=== PATIENT | male | born 1955 | race African-American/Black ===

== ENCOUNTER 2017-05-25 10:25 | Emergency (ER) | payer OTHER ==
[~2017-05-25] VITALS: Ht 172.7 cm; Wt 90.7 kg
[~2017-05-25 10:25] MED LIST: BENAZEPRIL HCL10 MG ORAL; CIPROFLOXACIN500 M2 ORAL; NORCO 5-325 TA1 EACH ORAL; ZOFRAN ODT4 MG ORAL
[2017-05-25 10:41] VITALS: BP 108/70
[2017-05-25] MEDS ORDERED: Ketorolac 60mg Inj IM ONE (10:45)
[2017-05-25 11:08] LABS: EOSINOPHILS % (AUTO) 2.5 % (0.0-3.0); MEAN CORPUSCULAR HEMOGLOBIN 32.6 PG (27.0-31.0); MEAN CORPUSCULAR HGB CONC 32.6 G/DL (32.0-36.0); MEAN CORPUSCULAR VOLUME 100 FL (80-99); MEAN PLATELET VOLUME 6.8 FL (6.5-10.1); MONOCYTES % (AUTO) 8.3 % (1.0-10.0); NEUTROPHILS % (AUTO) 75.3 % (45.0-75.0); PLATELET COUNT 203 K/UL (150-450); RED BLOOD COUNT 4.51 M/UL (4.70-6.10); RED CELL DISTRIBUTION WIDTH 11.1 % (11.6-14.8); WHITE BLOOD COUNT 7.4 K/UL (4.8-10.8)
[2017-05-25 11:17] LABS: INR 0.9 (0.9-1.1); PROTHROMBIN TIME 9.7 SEC (9.30-11.50)
[2017-05-25 11:19] LABS: APPEARANCE,URINE CLEAR; KETONES,URINE NEGATIVE (NEGATIVE); LEUKOCYTE ESTERASE ,URINE NEGATIVE (NEGATIVE); NITRITE,URINE NEGATIVE (NEGATIVE); PH,URINE 6 (4.5-8.0); PROTEIN,URINE 2+ (NEGATIVE); UROBILINOGEN,URINE NORMAL MG/DL (0.0-1.0)
[2017-05-25 11:21] LABS: ALBUMIN/GLOBULIN RATIO 1.1 (1.0-2.7); CALCIUM 8.9 mg/dL (8.6-10.2); CREATININE 3.6 mg/dL (0.7-1.2); GLOMERULAR FILTRATION RATE 20.8 mL/min (>60); POTASSIUM 3.3 mEQ/L (3.4-4.9); TOTAL PROTEIN 6.8 g/dL (6.6-8.7)
[2017-05-25 11:34] LABS: BACTERIA,URINE FEW /HPF; SQUAMOUS EPITHELIAL CELL,UR FEW /LPF (NONE/OCC)
--- NOTE | 2017-05-25 11:35 | Diagnostic Imaging Report ---
Indications: Back pain. Technique: 3 views of the lumbar spine Findings: Comparison: None Vertebral alignment is intact. No fracture, lytic destruction, or other acute changes are demonstrated. Prominent disc marginal osteophytes are present at each level, with very degrees of disc space narrowing. Lower facet joints appear mildly sclerotic and hypertrophied. IMPRESSION: No evidence of acute lumbar abnormalities Degenerative spondylosis
--- NOTE | 2017-05-25 11:57 | Emergency Room Report ---
History of Present Illness General Chief Complaint: Lower Back Pain or Injury Source: Patient, Medical Record Present Illness HPI Patient states that 3 days ago he slipped and fell onto his right side. He states that he has had severe pain in the right lower rib cage. He states pain is much worse with movement. He also notes bruising on his right upper abdomen. He denies head injury or trauma. He denies headache. He denies blurry vision. He denies neck pain. He has no other complaints Allergies: Coded Allergies: No Known Allergies (Unverified , 05/17/16) Patient History Past Medical History: see triage record, HTN Social History: Denies: alcohol use, drug use, smoking Reviewed Nursing Documentation: PMH: Agreed, PSxH: Agreed Nursing Documentation-PMH Past Medical History: No History, Except For Hx Hypertension: Yes Review of Systems All Other Systems: negative except mentioned in HPI Physical Exam Vital Signs Date Time Temp Pulse Resp B/P Pulse Ox O2 Delivery O2 Flow Rate FiO2 05/25/17 10:33 98.1 84 14 108/70 96 Room Air Sp02 EP Interpretation: reviewed, normal General Appearance: no apparent distress, alert, GCS 15, non-toxic Head: normocephalic, atraumatic Eyes: bilateral eye PERRL, bilateral eye normal inspection ENT: hearing grossly normal, normal pharynx, no angioedema, normal voice Neck: full range of motion, supple/symm/no masses Respiratory: chest non-tender, lungs clear, normal breath sounds, no respiratory distress, no retraction, no accessory muscle use, speaking full sentences, other - Tender to palpation on the right inferior rib cage. Ecchymoses of the lower rib cage and right upper quadrant with different colors consistent with healing hematoma. Cardiovascular #1: regular rate, rhythm, no edema Gastrointestinal: normal bowel sounds, soft, non-distended, no guarding, no rebound, tenderness - Tender to palpation in the right flank and right upper quadrant. Rectal: deferred Genitourinary: normal inspection, no CVA tenderness Musculoskeletal: back normal, gait/station normal, normal range of motion, non- tender Neurologic: alert, oriented x3, responsive, motor strength/tone normal, sensory intact, speech normal Psychiatric: judgement/insight normal, memory normal, mood/affect normal, no suicidal/homicidal ideation Skin: normal color, no rash, warm/dry, well hydrated, other - See Resp and GI exam Medical Decision Making Diagnostic Impression: Primary Impression: Ribs, multiple fractures Additional Impression: Renal failure ER Course This patient was found to have multiple rib fractures. There is no evidence of hemothorax or pneumothorax. There is no evidence of intra-abdominal injury or organ injury on CT of the chest and abdomen. I was unable to use IV contrast in this patient because his son have a creatinine of 3.6. The patient has no known history of kidney disease. Unfortunately, I do not have a comparison creatinine. I was un-able to get hold of the patient's primary care physician. This patient will be admitted for pain control his rib fractures and further monitoring of his renal failure. Labs Test 05/25/17 10:55 05/25/17 11:04 White Blood Count 7.4 K/UL (4.8-10.8) Red Blood Count 4.51 M/UL (4.70-6.10) Hemoglobin 14.7 G/DL (14.2-18.0) Hematocrit 45.1 % (42.0-52.0) Mean Corpuscular Volume 100 FL (80-99) Mean Corpuscular Hemoglobin 32.6 PG (27.0-31.0) Mean Corpuscular Hemoglobin Concent 32.6 G/DL (32.0-36.0) Red Cell Distribution Width 11.1 % (11.6-14.8) Platelet Count 203 K/UL (150-450) Mean Platelet Volume 6.8 FL (6.5-10.1) Neutrophils (%) (Auto) 75.3 % (45.0-75.0) Lymphocytes (%) (Auto) 13.0 % (20.0-45.0) Monocytes (%) (Auto) 8.3 % (1.0-10.0) Eosinophils (%) (Auto) 2.5 % (0.0-3.0) Basophils (%) (Auto) 1.0 % (0.0-2.0) Prothrombin Time 9.7 SEC (9.30-11.50) Prothromb Time International Ratio 0.9 (0.9-1.1) Activated Partial Thromboplast Time 28 SEC (23-33) Sodium Level 131 mEQ/L (135-145) Potassium Level 3.3 mEQ/L (3.4-4.9) Chloride Level 94 mEQ/L (98-107) Carbon Dioxide Level 22 mEQ/L (20-30) Anion Gap 15 (5-15) Blood Urea Nitrogen 23 mg/dL (7-23) Creatinine 3.6 mg/dL (0.7-1.2) Estimat Glomerular Filtration Rate 20.8 mL/min (>60) Glucose Level 136 mg/dL (74-106) Calcium Level 8.9 mg/dL (8.6-10.2) Total Bilirubin 0.6 mg/dL (0.0-1.2) Aspartate Amino Transf (AST/SGOT) 38 U/L (5-40) Alanine Aminotransferase (ALT/SGPT) 34 U/L (3-41) Alkaline Phosphatase 76 U/L (40-129) Total Protein 6.8 g/dL (6.6-8.7) Albumin 3.7 g/dL (3.5-5.2) Globulin 3.1 g/dL Albumin/Globulin Ratio 1.1 (1.0-2.7) Lipase 31 U/L (< 60) Urine Color Pale yellow Urine Appearance Clear Urine pH 6 (4.5-8.0) Urine Specific [place] 1.015 (1.005-1.035) Urine Protein 2+ (NEGATIVE) Urine Glucose (UA) Negative (NEGATIVE) Urine Ketones Negative (NEGATIVE) Urine Occult Blood 1+ (NEGATIVE) Urine Nitrite Negative (NEGATIVE) Urine Bilirubin Negative (NEGATIVE) Urine Urobilinogen Normal MG/DL (0.0-1.0) Urine Leukocyte Esterase Negative (NEGATIVE) Urine RBC 2-4 /HPF (0 - 0) Urine WBC 2-4 /HPF (0 - 0) Urine Squamous Epithelial Cells Few /LPF (NONE/OCC) Urine Bacteria Few /HPF (NONE) Other X-Ray Diagnostic Results Other X-Ray Diagnostic Results : X-Ray ordered: L-spine # of Views/Limited Vs Complete: 3 View Indication: Pain EP Interpretation: No Interpretation: no dislocation, no soft tissue swelling, no fractures, other Impression: No acute disease Interpreting ER Provider: Arielle Last Vital Signs Date Time Temp Pulse Resp B/P Pulse Ox O2 Delivery O2 Flow Rate FiO2 05/25/17 11:07 98.1 05/25/17 10:41 14 108/70 96 Room Air 05/25/17 10:33 84 Disposition: ADMITTED INPATIENT Condition: Stable BRADLEY HUNTLEY D.O. May 25, 2017 11:57
[2017-05-25 12:42] VITALS: BP 122/76
--- NOTE | 2017-05-25 13:30 | Diagnostic Imaging Report ---
\H\CT THORAX\N\ Indications: Pain since fall and chest trauma 5 days ago Technique: Continuous helical CT imaging of the thorax and upper abdomen was performed with automatic exposure control on a Siemens sensation [address] scanner. Axial, coronal, sagittal images reconstructed at 3 mm slice thickness. No IV contrast was administered secondary to elevated creatinine level. CTDI volume(s): 16 mGy Total DLP: 19 mGy-cm (Includes CT abdomen pelvis) Findings: Comparison: Contrast-enhanced CT abdomen pelvis, 05/17/2016 Lack of IV contrast limits evaluation. Lungs normally, symmetrically inflated and clear. No pleural abnormality. Heart mildly enlarged. No pericardial abnormality. Scattered mild arterial mural calcifications. Vascular patency indeterminate. Thoracic aorta nonaneurysmal. No abnormally enlarged mediastinal or hilar lymph nodes. Asymmetric enlargement of left thyroid lobe extends into upper mediastinum. Acute nondisplaced fractures posterior lateral aspects right atrium 10th ribs. Overlying soft tissues mildly swollen. Nondisplaced fracture lateral aspect right fourth rib, acuity indeterminate. Old, healed fractures of the left third through 12th ribs. Mild compression fracture superior endplate T7 vertebral body with subjacent gas filled cleft and marrow space sclerosis. No significant retropulsion. No posterior element involvement. No significant surrounding soft tissue swelling. Multilevel disc space narrowing with marginal osteophyte formation. IMPRESSION: Multiple right rib fractures, acute in appearance T7 vertebral body compression fracture, acuity indeterminate No other evidence of acute injury Cardiomegaly Old, healed left rib fractures Degenerative spondylosis Asymmetric enlargement of left thyroid lobe. Associated mass not excludable. \H\CT ABDOMEN PELVIS\N\ Indications: Pain since fall and abdominal trauma 5 days ago Technique: Continuous helical CT imaging of the abdomen and pelvis was performed with automatic exposure control on a Siemens sensation [address] scanner. Axial, coronal, sagittal images reconstructed at 3 mm slice thickness. No IV contrast administered due to elevated creatinine level. CTDI volume(s): As above mGy Total DLP: As above mGy-cm Findings: Comparison: Contrast-enhanced CT abdomen pelvis 05/17/2016 Lack of IV contrast limits evaluation of solid visceral parenchyma and vascular structures. Unenhanced liver, pancreas, spleen, adrenal glands, kidneys demonstrate no obvious intrinsic or surrounding abnormality. No extraluminal gas or fluid collections are demonstrated. Gastrointestinal tract nondilated throughout. No obvious mural thickening, adjacent stranding, or other obvious acute abnormality. Bilateral renal collecting systems and ureters remain nondilated. Prominent diverticulum again noted emanating from left posterior lateral aspect of urinary bladder. Scattered arterial mural calcifications. Vascular patency indeterminate. Remainder visualized pelvic anatomy demonstrates no other obvious acute abnormality. Bilateral fat-containing inguinal hernias again noted. Multilevel disc space narrowing with marginal osteophyte formation again noted throughout lumbar spine. No acute fracture demonstrated. IMPRESSION: No evidence of acute injury, with limitation as described. Subtle abnormality of unenhanced solid visceral parenchyma may be missed. No other evidence of acute abdominopelvic disease Stable chronic changes as described
[2017-05-25 13:58] VITALS: BP 127/90
[2017-05-25] MEDS ORDERED: Norco 5mg/325mg tab ORAL ONE (14:00)
[2017-05-25 15:59] VITALS: BP 143/89
[2017-05-25 16:17] VITALS: BP 143/89
== END 2017-05-25 16:23 | disposition short-term general hospital (02) ==
LOC: EMR 10:51
DX: S22.41XA Multiple fractures of ribs, right side, initial encounter for closed fracture (principal); W01.0XXA Fall on same level from slipping, tripping and stumbling without subsequent striking against object, initial encounter; Y92.89 Other specified places as the place of occurrence of the external cause; N19 Unspecified kidney failure; I10 Essential (primary) hypertension; M47.816 Spondylosis without myelopathy or radiculopathy, lumbar region
CPT/HCPCS: 36415; 71250; 72020; 74176; 80053; 81003; 83690; 85025; 85610; 85730; 96372; 99285

== ENCOUNTER 2019-12-18 11:18 | Emergency (ER) | payer OTHER ==
[~2019-12-18] VITALS: Ht 172.7 cm; Wt 95.3 kg
[~2019-12-18 11:18] MED LIST changes: +COLACE100 MG ORAL; +MIRALAX17 G2 ORAL; +MIRTAZAPINE15 M3 ORAL; +TRAZODONE HCL100 MG ORAL; +VITAMIN D400 INTLU ORAL
--- NOTE | 2019-12-18 11:28 | NUR ---
ED Nurse Note: Pt walked in from home c/o bilateral lower back and flank pain 10/10 x3 days. Pt denies injury/N/V/diarrhea. Respirations even and unlabored on room air. Vitals stable as documented.
[2019-12-18 11:29] VITALS: BP 138/87
--- NOTE | 2019-12-18 11:57 | Emergency Room Report ---
History of Present Illness General Chief Complaint: Pain Source: Patient Present Illness HPI Patient is a 64-year-old male presents after increased back pain for the past 2 to 3 days. Pain is worse with movement. Denies any recent trauma. Denies any hematuria. Reports having increased bilateral lower abdominal pain. Allergies: Coded Allergies: No Known Allergies (Unverified , 05/17/16) Patient History Past Medical History: see triage record Reviewed Nursing Documentation: PMH: Agreed; PSxH: Agreed Nursing Documentation-PMH Past Medical History: No History, Except For Hx Hypertension: Yes Review of Systems All Other Systems: negative except mentioned in HPI Physical Exam Vital Signs Date Time Temp Pulse Resp B/P (MAP) Pulse Ox O2 Delivery O2 Flow Rate FiO2 12/18/19 11:22 97.9 89 14 137/91 (106) 95 Room Air Sp02 EP Interpretation: reviewed, normal General Appearance: normal inspection, well appearing, no apparent distress, alert, GCS 15, non-toxic Head: atraumatic ENT: normal ENT inspection, hearing grossly normal, normal voice Neck: normal inspection, full range of motion, supple, no bony tend Respiratory: normal inspection, lungs clear, normal breath sounds, no respiratory distress, no retraction, no wheezing Cardiovascular #1: regular rate, rhythm, no edema Gastrointestinal: normal inspection, normal bowel sounds, non tender, soft, no guarding, no hernia Genitourinary: no CVA tenderness Musculoskeletal: normal inspection, back normal, decreased range of motion Neurologic: alert, oriented x3, responsive, speech normal, normal inspection Psychiatric: normal inspection, judgement/insight normal, mood/affect normal Medical Decision Making Diagnostic Impression: Primary Impression: Abdominal pain Additional Impressions: Urinary tract infection Enteritis ER Course Patient presented for low back pain. Differential diagnosis include was not limited to urinary tension, prostatitis, diverticulitis among others. Because of complexity of patient's case laboratory tests and imaging studies were ordered. Patient's laboratory testing showed normal white blood count. Urinalysis showed some evidence of significant urinary infection. CT of the abdomen pelvis ordered patient's advanced age. Spleen showed several calcified gland granuloma bilateral inguinal hernias were present containing only fat there is a Hutch diverticulum posterior lateral on the left side 3 to 4cm generalized reticulation and soft tissue stranding in the retroperitoneum small lymph nodes within the retroperitoneal and celiac trunk.Patient will be hospitalized for further evaluation and treatment of urinary infection and lymphadenopathy. Labs Test 12/18/19 12:05 12/18/19 13:14 White Blood Count 7.2 K/UL (4.8-10.8) Red Blood Count 4.36 M/UL (4.70-6.10) Hemoglobin 15.2 G/DL (14.2-18.0) Hematocrit 43.6 % (42.0-52.0) Mean Corpuscular Volume 100 FL (80-99) Mean Corpuscular Hemoglobin 34.8 PG (27.0-31.0) Mean Corpuscular Hemoglobin Concent 34.8 G/DL (32.0-36.0) Red Cell Distribution Width 11.3 % (11.6-14.8) Platelet Count 151 K/UL (150-450) Mean Platelet Volume 5.5 FL (6.5-10.1) Neutrophils (%) (Auto) 74.1 % (45.0-75.0) Lymphocytes (%) (Auto) 16.0 % (20.0-45.0) Monocytes (%) (Auto) 7.1 % (1.0-10.0) Eosinophils (%) (Auto) 1.8 % (0.0-3.0) Basophils (%) (Auto) 1.1 % (0.0-2.0) Prothrombin Time 12.9 SEC (9.30-11.50) Prothromb Time International Ratio 1.2 (0.9-1.1) Activated Partial Thromboplast Time 33 SEC (23-33) Sodium Level 135 MMOL/L (136-145) Potassium Level 5.6 MMOL/L (3.5-5.1) Chloride Level 101 MMOL/L (98-107) Carbon Dioxide Level 28 MMOL/L (21-32) Anion Gap 6 mmol/L (5-15) Blood Urea Nitrogen 9 mg/dL (7-18) Creatinine 0.8 MG/DL (0.55-1.30) Estimat Glomerular Filtration Rate > 60 mL/min (>60) Glucose Level 83 MG/DL (74-106) Calcium Level 8.7 MG/DL (8.5-10.1) Total Bilirubin 5.8 MG/DL (0.2-1.0) Direct Bilirubin 1.7 MG/DL (0.0-0.3) Aspartate Amino Transf (AST/SGOT) 75 U/L (15-37) Alanine Aminotransferase (ALT/SGPT) 32 U/L (12-78) Alkaline Phosphatase 144 U/L (46-116) Total Protein 7.7 G/DL (6.4-8.2) Albumin 2.8 G/DL (3.4-5.0) Globulin 4.9 g/dL Albumin/Globulin Ratio 0.6 (1.0-2.7) Lipase 70 U/L (73-393) Urine Color Brown Urine Appearance Cloudy Urine pH 6.5 (4.5-8.0) Urine Specific [place] 1.015 (1.005-1.035) Urine Protein 2+ (NEGATIVE) Urine Glucose (UA) Negative (NEGATIVE) Urine Ketones 1+ (NEGATIVE) Urine Blood 2+ (NEGATIVE) Urine Nitrite Positive (NEGATIVE) Urine Bilirubin 2+ (NEGATIVE) Urine Ictotest Positive (NEGATIVE) Urine Urobilinogen 12 MG/DL (0.0-1.0) Urine Leukocyte Esterase 3+ (NEGATIVE) Urine RBC 2-4 /HPF (0 - 0) Urine WBC Tntc /HPF (0 - 0) Urine Squamous Epithelial Cells Occasional /LPF Urine Bacteria Few /HPF (NONE) Last Vital Signs Date Time Temp Pulse Resp B/P (MAP) Pulse Ox O2 Delivery O2 Flow Rate FiO2 12/18/19 11:29 98.0 14 138/87 96 Room Air 12/18/19 11:22 89 Status: improved Disposition: XFER SHT-TRM HOSP Condition: Stable Bobby Carrillo MD Dec 18, 2019 11:57
[2019-12-18] MEDS ORDERED: Morphine Sulfate 4mg/ml Inj (IV USE ONLY) IVP ONE (12:00)
--- NOTE | 2019-12-18 12:26 | NUR ---
ED Nurse Note: Pt in CT
--- NOTE | 2019-12-18 12:38 | NUR ---
ED Nurse Note: Pt back from CT
[2019-12-18 12:58] LABS: ANION GAP 6 mmol/L (5-15); BLOOD UREA NITROGEN 9 mg/dL (7-18); CALCIUM 8.7 MG/DL (8.5-10.1); CARBON DIOXIDE 28 MMOL/L (21-32); CHLORIDE 101 MMOL/L (98-107); CREATININE 0.8 MG/DL (0.55-1.30); POTASSIUM 5.6 MMOL/L (3.5-5.1); SODIUM 135 MMOL/L (136-145)
[2019-12-18 13:00] VITALS: BP 143/89
[2019-12-18 13:05] LABS: BASOPHILS % (AUTO) 1.1 % (0.0-2.0); EOSINOPHILS % (AUTO) 1.8 % (0.0-3.0); HEMATOCRIT 43.6 % (42.0-52.0); HEMOGLOBIN 15.2 G/DL (14.2-18.0); MEAN CORPUSCULAR VOLUME 100 FL (80-99); MONOCYTES % (AUTO) 7.1 % (1.0-10.0); NEUTROPHILS % (AUTO) 74.1 % (45.0-75.0); PLATELET COUNT 151 K/UL (150-450); RED BLOOD COUNT 4.36 M/UL (4.70-6.10); RED CELL DISTRIBUTION WIDTH 11.3 % (11.6-14.8); WHITE BLOOD COUNT 7.2 K/UL (4.8-10.8)
[2019-12-18 13:08] LABS: ALANINE AMINOTRANSFERASE 32 U/L (12-78); ALBUMIN 2.8 G/DL (3.4-5.0); ALBUMIN/GLOBULIN RATIO 0.6 (1.0-2.7); ALKALINE PHOSPHATASE 144 U/L (46-116); ASPARTATE AMINO TRANSFERASE 75 U/L (15-37); BILIRUBIN,TOTAL 5.8 MG/DL (0.2-1.0)
[2019-12-18 13:12] LABS: INR 1.2 (0.9-1.1)
[2019-12-18 13:14] LABS: BILIRUBIN,DIRECT 1.7 MG/DL (0.0-0.3)
--- NOTE | 2019-12-18 13:23 | Diagnostic Imaging Report ---
INDICATION: Abdominal pain TECHNIQUE: Continuous helical transaxial imaging of the abdomen and pelvis was obtained from the lung bases to the pubic symphysis. No intravenous contrast was administered. Coronal 2-D reformats were also obtained. Automatic Exposure Control was utilized. Total Dose length Product (DLP): 1667.[address] Dose Index Volume (CTDIvol): 31.9 mGy Comparison: none FINDINGS: Lungs: The visualized lung bases are clear. Liver: The liver is diffusely hypodense. There is surface nodularity. There is a trace subcapsular versus perihepatic fluid along the lateral margin of the liver. Gallbladder/biliary system: No gallstones are identified. There is no evidence of intrahepatic or extrahepatic biliary ductal dilatation. Spleen: Few calcifications noted within the spleen consistent with calcific granulomata. Spleen size is normal. Pancreas: Unremarkable Kidneys: No definite stone or hydronephrosis are identified.. Adrenal glands: Unremarkable Bowel: There are mildly distended loops of fluid-filled small bowel consistent with enteritis/ileus. The appendix is normal. Bladder: The bladder is relatively nondistended. There is some ill-definition of the wall the bladder with suggestion of mild perivesical soft tissue stranding which may be a sign of intrinsic inflammation. There is a Hutch diverticulum posterior lateral on the left side measuring approximately 3 to 4 cm. There are bilateral inguinal hernias containing fat. Aorta/IVC: Mild to moderate calcification of aorta and iliac arteries noted. There is no aneurysm. Peritoneum: There is generalized reticulation and soft tissue stranding in the area of the retroperitoneum especially the anterior pararenal space and in the area adjacent to the aorta and IVC as well as the portions of the peritoneum subjacent to the duodenum and the right hemicolon. Findings are nonspecific. Consider retroperitoneal fibrosis. Consider stranding on the basis of chronic liver disease mesenteric congestion. There is no compa ascites. There are small lymph nodes as well within the retroperitoneum and celiac trunk/peripancreatic region. These findings were not present on the previous CT dated 04/05/2019. There is no abscess.. Bones: There is narrowing of intervertebral discs and accompanying endplate osteophyte formation. Hypertrophied facet joints also demonstrated. Bones are osteopenic. IMPRESSION: Generalized retroperitoneal and peritoneal soft tissue stranding not seen previously. Etiology is uncertain. Consider diffuse inflammatory process such as peritonitis, mesenteric congestion secondary to chronic liver disease, retroperitoneal fibrosis. Please correlate clinically. No compa ascites demonstrated. No evidence of abscess. Mild distention of small bowel noted throughout the abdomen may be related to enteritis/ileus. Evidence of chronic liver disease with surface nodularity. Low attenuation indicative of fatty infiltration. Trace subcapsular fluid versus perihepatic ascites. Ill-definition of the bladder with slight thickening of the wall. Consider cystitis. Left-sided Hutch diverticulum. Bilateral inguinal hernias containing fat Atherosclerotic vascular disease. Degenerative changes of the spine. Calcified splenic granulomata. Note: Evaluation of solid organs is limited on non contrast imaging. The CT scanner at [facility] is accredited by the [employer] and the scans are performed using dose optimization techniques as appropriate to a performed exam including Automatic Exposure control.
[2019-12-18 13:25] LABS: APPEARANCE,URINE CLOUDY; BILIRUBIN, URINE 2+ (NEGATIVE); COLOR,URINE BROWN; GLUCOSE, URINE (UA) NEGATIVE (NEGATIVE); KETONES,URINE 1+ (NEGATIVE); LEUKOCYTE ESTERASE ,URINE 3+ (NEGATIVE); NITRITE,URINE POSITIVE (NEGATIVE); PH,URINE 6.5 (4.5-8.0); PROTEIN,URINE 2+ (NEGATIVE); UROBILINOGEN,URINE 12 MG/DL (0.0-1.0)
[2019-12-18] MEDS ORDERED: cefTRIAXone 1 GM in NS 55 ML IVPB ONE (13:45)
[2019-12-18] MEDS ORDERED: Hydromorphone 0.5mg/0.5ml inj IVP ONE (17:15)
--- NOTE | 2019-12-18 17:18 | NUR ---
ED Nurse Note: Attempted to call AILEEN Liz and the eliud khan ringing with no answer. Will try again in 10 minutes.
--- NOTE | 2019-12-18 17:34 | NUR ---
ED Nurse Note: Report given to georgina Monge specialty food products supervisor @ [facility]
--- NOTE | 2019-12-18 17:50 | NUR ---
ED Nurse Note: [facility] @ bedside to transfer to [facility]. Report given to ambulance personmargarita. Pt discharging with right hand 22 g. Flushed and patent. Respirations even and unlabored on room air. Vitals stable as documented.
--- NOTE | 2019-12-18 17:57 | NUR ---
ED Nurse Note: Pt discharged safely via gurney accompanied by ambulance personnel. Pt in stable condition upon discharge.
[2019-12-18 17:59] VITALS: BP 136/84
== END 2019-12-18 18:04 | disposition home or self-care (01) ==
LOC: EMR 12:15
DX: N39.0 Urinary tract infection, site not specified (principal); K52.9 Noninfective gastroenteritis and colitis, unspecified; R10.30 Lower abdominal pain, unspecified; I10 Essential (primary) hypertension
CPT/HCPCS: 36415; 74176; 80053; 81003; 82248; 83690; 85025; 85610; 85730; 87086; 87181; 96365; 96375; 96376; 99284; J0696; J1170; J2270; J2405